=== PATIENT | male | born 1940 | race Caucasian/White ===

== ENCOUNTER → 2022-08-30 13:43 | Outpatient (BNVA) | payer MEDICARE, SELFPAY | PROVIDERS: Visit Provider Psychiatry & Neurology Psychiatry | DX: F41.1 Generalized anxiety disorder (principal); F32.5 Major depressive disorder, single episode, in full remission; I69.319 Unspecified symptoms and signs involving cognitive functions following cerebral infarction; F98.8 Other specified behavioral and emotional disorders with onset usually occurring in childhood and adolescence; N32.81 Overactive bladder; I10 Essential (primary) hypertension | CPT/HCPCS: 99212 ==

== ENCOUNTER → 2023-02-22 14:37 | Outpatient (BNVA) | payer MEDICARE, SELFPAY | PROVIDERS: Visit Provider Psychiatry & Neurology Psychiatry | DX: F98.8 Other specified behavioral and emotional disorders with onset usually occurring in childhood and adolescence (principal); F41.1 Generalized anxiety disorder; F32.5 Major depressive disorder, single episode, in full remission | CPT/HCPCS: 99212 ==

== ENCOUNTER 2023-08-08 13:38 | Outpatient (AMB) | payer MEDICARE, SELFPAY ==
--- NOTE | 2023-08-08 13:53 | MHC.OFFVISPS ---
Intake Intake Visit Reasons: depression Allergies Sulfa (Sulfonamide Antibiotics) Allergy (Mild, Verified 08/30/22 13:52) Rash Medication List - Last Reconciled 08/08/23 by Burton Joseph MD albuterol sulfate 90 mcg/actuation 0 mcg inhalation atomoxetine 40 mg PO DAILY atorvastatin 20 mg PO DAILY buspirone 30 mg PO BID ciprofloxacin HCl 500 mg PO BID cyanocobalamin (vitamin B-12) 1,000 mcg IM escitalopram oxalate 10 mg PO DAILY finasteride 5 mg PO DAILY gabapentin mg PO insulin detemir U-100 (Levemir FlexTouch U-100 Insulin) 10 units subcut DAILY isosorbide dinitrate 5 mg PO BID latanoprost 0.005% drps ophthalmic (eye) lidocaine-prilocaine 2.5-2.5 % grams topical DAILY montelukast 10 mg PO DAILY nebivolol 2.5 mg PO DAILY omeprazole 20 mg PO DAILY tamsulosin 0.4 mg PO DAILY trazodone 200 mg (2 x 100 mg) PO BEDTIME PRN umeclidinium-vilanterol 62.5-25 mcg/actuation (Anoro Ellipta) 1 ea inhalation DAILY HPI- Psychiatric Chief Complaint: depression HPI Narrative: Patient seen psychiatric follow-up. Patient's PHQ-9 GED unremarkable. Patient mood has been stable future oriented able to enjoy things no change in medical status. He continues to do was to try orders in the house lives with his in a condo feels stable on current medication no complaints of side effects. Has history of treatment resistant depression with anxiety but has now been stable for many years Past Psychiatric History: Past history of depression and anxiety. History of for alcohol dependence years ago. History of CVA with resulting irritability a few years ago Mental Status Exam Mental Status Exam Narrative: Mental Status Exam Narrative: Appearance: Casually dressed Behavior: Cooperative psychomotor: Normal Speech: Clear nl volume prosody Thought proccess logical goal directed Thought content: Positive content regarding present circumstance Mood: Euthymic Affect: Appropriate full affect SI:denies HI:denies VH/AH:none Delusions: None Insight/judgment: Intact Memory/cog: Executive functioning appears intact good judgement Assessment and Plan Assessment & Plan (1) ADD (attention deficit disorder): Status: Acute Qualifiers: Hyperactivity presence: absent Qualified Code(s): F98.8 - Other specified behavioral and emotional disorders with onset usually occurring in childhood and adolescence Code(s): F98.8 - Other specified behavioral and emotional disorders with onset usually occurring in childhood and adolescence (2) Generalized anxiety disorder: Status: Acute Code(s): F41.1 - Generalized anxiety disorder (3) Major depression in full remission: Status: Acute Qualifiers: Major depression recurrence: recurrent Qualified Code(s): F33.42 - Major depressive disorder, recurrent, in full remission Code(s): F32.5 - Major depressive disorder, single episode, in full remission Plan Patient has been stable on atomoxetine BuSpar escitalopram for extended period of time. No complaints of side effects mood stable not overly anxious or reactive. Sensorium clear able to function well with feels connected with family Medications: Refilled atomoxetine 40 mg PO DAILY 90 caps 1RF buspirone 30 mg PO BID 180 tabs 1RF escitalopram oxalate 10 mg PO DAILY 90 tabs 1RF Counseling and coordination of Care Details: I spent [] minutes reviewing the record, seeing the patient and documenting in the medical record. Counseling provided to the patient/caregiver as outlined below. Addressed patient/caregiver concerns regarding current medication regime including effective adherence. Addressed patient/caregiver concerns regarding diagnosis and prognosis including accuracy of diagnosis, prognosis over time, impact of diagnosis. Addressed patient/caregiver concerns regarding impact of recent stressors. [facility] Medical History (Updated 08/08/23 @ 14:01 by Burton Joseph MD) ADD (attention deficit disorder) Generalized anxiety disorder Overactive bladder Hypertension Social History: pt retired serious respiratory problems close with children grandchildren father was verbally abusive Substance History: hx alcohol dep states some use denies misuse Trauma History: na Coding Level of Care Code Est Pt Level 4 (96090) Diagnoses Attention deficit disorder (ADD) without hyperactivity F98.8 Hyperactivity presence: absent Generalized anxiety disorder F41.1 Recurrent major depressive disorder, in full remission F33.42 Major depression recurrence: recurrent
== END 2023-08-08 16:21 | disposition home or self-care (01) ==
LOC: HO.HOP 13:38
PROVIDERS: Visit Provider Psychiatry & Neurology Psychiatry
DX: F98.8 Other specified behavioral and emotional disorders with onset usually occurring in childhood and adolescence (principal); F41.1 Generalized anxiety disorder; F33.42 Major depressive disorder, recurrent, in full remission
CPT/HCPCS: 99214

== ENCOUNTER → 2023-08-08 13:38 | Outpatient (BNVA) | payer MEDICARE, SELFPAY | PROVIDERS: Visit Provider Psychiatry & Neurology Psychiatry | DX: F33.42 Major depressive disorder, recurrent, in full remission (principal); F98.8 Other specified behavioral and emotional disorders with onset usually occurring in childhood and adolescence; F41.1 Generalized anxiety disorder; Z79.899 Other long term (current) drug therapy | CPT/HCPCS: 99212 ==

== ENCOUNTER 2024-01-30 14:00 | Outpatient (AMB) | payer MEDICARE, SELFPAY ==
--- NOTE | 2024-01-30 14:11 | MHC.OFFVISPS ---
Intake Intake Visit Reasons: Depression Allergies Sulfa (Sulfonamide Antibiotics) Allergy (Mild, Verified 08/30/22 13:52) Rash HPI- Psychiatric Chief Complaint: Depression HPI Narrative: Pt seen in f/u mood stable was dealing with grandson had alc related veh accodent medically stable occ bladder infection mood stable pleasant fure oriebted phq9 omar reviewed no c/o s/e lexapro atomoxitine Past Psychiatric History: Past history of depression and anxiety. History of for alcohol dependence years ago. History of CVA with resulting irritability a few years ago Mental Status Exam Mental Status Exam Narrative: Mental Status Exam Narrative: Appearance: Casually dressed Behavior: Cooperative psychomotor: Normal Speech: Clear nl volume prosody Thought proccess logical goal directed Thought content: Positive content regarding present circumstance Mood: Euthymic Affect: Appropriate full affect SI:denies HI:denies VH/AH:none Delusions: None Insight/judgment: Intact Memory/cog: Executive functioning appears intact good judgement some slowing Assessment and Plan Assessment & Plan (1) ADD (attention deficit disorder): Status: Acute Qualifiers: Hyperactivity presence: absent Qualified Code(s): F98.8 - Other specified behavioral and emotional disorders with onset usually occurring in childhood and adolescence Code(s): F98.8 - Other specified behavioral and emotional disorders with onset usually occurring in childhood and adolescence (2) Generalized anxiety disorder: Status: Acute Code(s): F41.1 - Generalized anxiety disorder (3) Major depression in full remission: Status: Acute Qualifiers: Major depression recurrence: recurrent Qualified Code(s): F33.42 - Major depressive disorder, recurrent, in full remission Code(s): F32.5 - Major depressive disorder, single episode, in full remission Medications: Changed From atomoxetine 40 mg PO DAILY 90 caps 1RF To atomoxetine 25 mg PO DAILY 90 caps 1RF Refilled buspirone 30 mg PO BID 180 tabs 1RF escitalopram oxalate 10 mg PO DAILY 90 tabs 1RF trazodone 200 mg (2 x 100 mg) PO BEDTIME PRN 180 tabs 1RF insomnia Counseling and coordination of Care Pt. Self Management counseling: General coping skills Medication management counseling: Effectiveness and Side effects Diagnosis and Prognosis Counseling: Adequacy of current interventions Details-Diagnosis/Prognosis counseling: discussed trying to decrease atomoxitine trazadone as tolerated close with children grandchildren Details: I spent [] minutes reviewing the record, seeing the patient and documenting in the medical record. Counseling provided to the patient/caregiver as outlined below. Addressed patient/caregiver concerns regarding current medication regime including effective adherence. Addressed patient/caregiver concerns regarding diagnosis and prognosis including accuracy of diagnosis, prognosis over time, impact of diagnosis. Addressed patient/caregiver concerns regarding impact of recent stressors. [facility] Medical History (Updated 08/08/23 @ 14:01 by Burton Joseph MD) ADD (attention deficit disorder) Generalized anxiety disorder Overactive bladder Hypertension Social History: pt retired serious respiratory problems close with children grandchildren father was verbally abusive Substance History: hx alcohol dep states some use denies misuse Trauma History: na Coding Level of Care Code Est Pt Level 4 (73992) Diagnoses Attention deficit disorder (ADD) without hyperactivity F98.8 Hyperactivity presence: absent Generalized anxiety disorder F41.1 Recurrent major depressive disorder, in full remission F33.42 Major depression recurrence: recurrent
== END 2024-01-30 14:29 | disposition home or self-care (01) ==
LOC: HO.HOP 14:01
PROVIDERS: Visit Provider Psychiatry & Neurology Psychiatry
DX: F98.8 Other specified behavioral and emotional disorders with onset usually occurring in childhood and adolescence (principal); F41.1 Generalized anxiety disorder; F33.42 Major depressive disorder, recurrent, in full remission
CPT/HCPCS: 99214

== ENCOUNTER → 2024-01-30 14:00 | Outpatient (BNVA) | payer MEDICARE, SELFPAY | PROVIDERS: Visit Provider Psychiatry & Neurology Psychiatry | DX: F98.8 Other specified behavioral and emotional disorders with onset usually occurring in childhood and adolescence (principal); F41.1 Generalized anxiety disorder; F33.42 Major depressive disorder, recurrent, in full remission | CPT/HCPCS: 99212 ==

== ENCOUNTER 2024-06-06 14:15 | Outpatient (AMB) | payer MEDICARE, SELFPAY ==
--- NOTE | 2024-06-06 14:04 | A.OFFPSYCH_ITS ---
Intake Intake Visit Reasons: Depression Allergies Sulfa (Sulfonamide Antibiotics) Allergy (Mild, Verified 08/30/22 13:52) Rash Medication List - Last Reconciled 06/06/24 by Burton Joseph MD albuterol sulfate 90 mcg/actuation 0 mcg inhalation atorvastatin 20 mg PO DAILY buspirone 30 mg PO BID ciprofloxacin HCl 500 mg PO BID cyanocobalamin (vitamin B-12) 1,000 mcg IM escitalopram oxalate 10 mg PO DAILY finasteride 5 mg PO DAILY gabapentin mg PO insulin detemir U-100 (Levemir FlexTouch U-100 Insulin) 10 units subcut DAILY isosorbide dinitrate 5 mg PO BID latanoprost 0.005% drps ophthalmic (eye) lidocaine-prilocaine 2.5-2.5 % grams topical DAILY montelukast 10 mg PO DAILY nebivolol 2.5 mg PO DAILY omeprazole 20 mg PO DAILY tamsulosin 0.4 mg PO DAILY trazodone 200 mg (2 x 100 mg) PO BEDTIME PRN umeclidinium-vilanterol 62.5-25 mcg/actuation (Anoro Ellipta) 1 ea inhalation DAILY HPI- Psychiatric Chief Complaint: Depression HPI Narrative: The patient is an 84-year-old male with a long history recurrent depression,anxiety and past diagnosis of ADHD who has been stable for number of years. There is a past history of alcoholism which was problematic in years past which currently reportedly has not been an issue and present drinking he states is 1 beer a night. The patient scores minimally on the PHQ-9. He stays social with family has become disabled difficulty with walking has difficulty leaving the house. Past history marital discord now stable. Patient able to enjoy things manage his time denies depressive or significant anxiety symptoms The patient in the past was on stimulants for ADD has not been on for a number years after having angioplasty. He has been on Strattera for difficulty with concentration which we have been trying to taper down on case it is a contributing factor to bladder dysfunction and has been on stable doses of esci talopram and buspirone for many years Past Psychiatric History: Past history of depression and anxiety. History of for alcohol dependence years ago. History of CVA with resulting irritability a few years ago has been stable no further reported CVA according to the patient. There is remote history of psychiatric hospitalization status post suicide attempt in many years past Subjective Subjective Subjective Medication Compliance: Yes Review of Systems Medical Review of Systems: unchanged Mental Status Exam Mental Status Exam Narrative: Mental Status Exam Narrative: Appearance: Casually dressed Behavior: Cooperative psychomotor: Normal Speech: Clear nl volume prosody Thought proccess logical goal directed Thought content: Positive content regarding present circumstance Mood: described as good Affect: Appropriate full affect SI:denies HI:denies VH/AH:none Delusions: None Insight/judgment: Intact Memory/cog: Executive functioning appears intact good judgement some slowing cognitively mild memory impairment Assessment and Plan Assessment & Plan (1) Generalized anxiety disorder: Status: Acute Code(s): F41.1 - Generalized anxiety disorder (2) Major depression in full remission: Status: Acute Qualifiers: Major depression recurrence: recurrent Qualified Code(s): F33.42 - Major depressive disorder, recurrent, in full remission Code(s): F32.5 - Major depressive disorder, single episode, in full remission (3) ADD (attention deficit disorder): Status: Acute Qualifiers: Hyperactivity presence: absent Qualified Code(s): F98.8 - Other specified behavioral and emotional disorders with onset usually occurring in childhood and adolescence Code(s): F98.8 - Other specified behavioral and emotional disorders with onset usually occurring in childhood and adolescence (4) CVA, old, cognitive deficits: Status: Acute Code(s): I69.319 - Unspecified symptoms and signs involving cognitive functions following cerebral infarction (5) Overactive bladder: Status: Acute Code(s): N32.81 - Overactive bladder (6) Hypertension: Status: Acute Code(s): I10 - Essential (primary) hypertension Plan Discussed with patient following up with primary care physician has been stable mood [place] for a number of years his relationship with his is stable according to patient things going well engaged with his family. Past history of alcoholism with secondary consequences has been stable for a number of years reportedly without any abusive drinking blackouts states he drinks 1 beer a night. His depression anxiety have been stable on a combination of escitalopram buspirone and trazodone at bedtime for sleep. If over-sedated in the morning which she denies can try and lower trazodone over time from 200 mg. Atomoxetine has been discontinued which was used in the past for help with concentration and attention after stimulants were discontinued a number of years ago. At this point in time may be interfering with bladder function and has been discontinued. Patient stable times years would continue treatment as noted. Patient will be following up with his primary care physician Medications: Refilled buspirone 30 mg PO BID 180 tabs 1RF escitalopram oxalate 10 mg PO DAILY 90 tabs 1RF trazodone 200 mg (2 x 100 mg) PO BEDTIME PRN 180 tabs 1RF for insomnia Counseling and coordination of Care Details-Self Mgmt counseling: Maintain daily structure encourage daily walk maintain strict limit regarding alcohol use Would most likely benefit from B complex Medication management counseling: Effectiveness, Side effects and Dosing range Diagnosis and Prognosis Counseling: Adequacy of current interventions Details-Diagnosis/Prognosis counseling: Patient reportedly will be followed up by primary care Details: I spent [30] minutes reviewing the record, seeing the patient and documenting in the medical record. Counseling provided to the patient/caregiver as outlined below. Addressed patient/caregiver concerns regarding current medication regime including effective adherence. Addressed patient/caregiver concerns regarding diagnosis and prognosis including accuracy of diagnosis, prognosis over time, impact of diagnosis. Addressed patient/caregiver concerns regarding impact of recent stressors. [facility] Medical History (Updated 06/17/24 @ 17:18 by Burton Joseph MD) Hepatitis C ADD (attention deficit disorder) Generalized anxiety disorder Overactive bladder Hypertension Social History: pt retired serious respiratory problems close with children grandchildren father was verbally abusive Substance History: hx alcohol dep states some use denies misuse Trauma History: na Coding Level of Care Code Est Pt Level 4 (01773) Diagnoses Generalized anxiety disorder F41.1 Recurrent major depressive disorder, in full remission F33.42 Major depression recurrence: recurrent Attention deficit disorder (ADD) without hyperactivity F98.8 Hyperactivity presence: absent CVA, old, cognitive deficits I69.319 Overactive bladder N32.81 Hypertension I10
== END 2024-06-06 14:17 | disposition home or self-care (01) ==
LOC: HO.HOP 14:16
PROVIDERS: Visit Provider Psychiatry & Neurology Psychiatry
DX: F41.1 Generalized anxiety disorder (principal); F33.42 Major depressive disorder, recurrent, in full remission; F98.8 Other specified behavioral and emotional disorders with onset usually occurring in childhood and adolescence; I69.319 Unspecified symptoms and signs involving cognitive functions following cerebral infarction; N32.81 Overactive bladder; I10 Essential (primary) hypertension
CPT/HCPCS: 99214

== ENCOUNTER → 2024-06-06 14:15 | Outpatient (BNVA) | payer MEDICARE, SELFPAY | PROVIDERS: Visit Provider Psychiatry & Neurology Psychiatry | DX: F33.42 Major depressive disorder, recurrent, in full remission (principal); F41.1 Generalized anxiety disorder; F98.8 Other specified behavioral and emotional disorders with onset usually occurring in childhood and adolescence; I10 Essential (primary) hypertension; N32.81 Overactive bladder; I69.319 Unspecified symptoms and signs involving cognitive functions following cerebral infarction | CPT/HCPCS: 99212 ==